=== PATIENT | male | born 1940 | race Caucasian/White ===

== ENCOUNTER → 2016-07-19 | Outpatient (CLI) | payer MEDICARE | END | disposition home or self-care (01) | LOC: GMAM 16:38 | PROVIDERS: ATTEND Family Medicine | DX: R35.0 Frequency of micturition (principal) ==

== ENCOUNTER → 2016-09-24 | Outpatient (CLI) | payer MEDICARE ==
--- NOTE | 2016-09-24 11:11 | RAD ---
EXAM DESCRIPTION: Barium Swallow CLINICAL HISTORY: 76 years Male, DYSPHAGIA COMPARISON: None. FINDINGS: Total exam time 0.7 minutes, 19.25 mGy, 11 fluoroscopic images including 3 cine clips. The exam is performed in the prone HERNANDEZ position only. No standing images were obtained. With this in mind, the esophagus is of normal course and caliber. Is no esophageal stricture or diverticulum. No hiatal hernia is seen. There are a few transverse folds which extend across the entire esophageal lumen suggesting the possibility of feline esophagus which is associated with gastroesophageal reflux. No gastroesophageal reflux was observed during this exam. There are multiple tertiary contractions with ineffective clearance of barium contrast by the primary peristaltic wave.. IMPRESSION: Esophageal dysmotility without definite esophageal wall thickening, stricture or esophageal obstruction. 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 If symptoms persist, EGD may be helpful for further evaluation. Electronically signed by: Gilberto Good MD 09/24/2016 11:10 AM CDT Workstation: [id number]
== END | disposition home or self-care (01) ==
LOC: RAD 09:42
PROVIDERS: ATTEND Otolaryngology Otolaryngology/Facial Plastic Surgery
DX: R49.0 Dysphonia (principal); R13.10 Dysphagia, unspecified

== ENCOUNTER → 2016-11-19 | Outpatient (CLI) | payer MEDICARE | LOC: BFHH 16:24 | PROVIDERS: ATTEND Family Medicine | DX: E11.22 Type 2 diabetes mellitus with diabetic chronic kidney disease (principal) ==

== ENCOUNTER → 2017-02-28 | Outpatient (CLI) | payer MEDICARE | END | disposition home or self-care (01) | LOC: GMAM 11:12 | PROVIDERS: ATTEND Family Medicine | DX: Z12.5 Encounter for screening for malignant neoplasm of prostate (principal) ==

== ENCOUNTER → 2017-06-07 | Outpatient (CLI) | payer MEDICARE | LOC: GMAM 11:52 | PROVIDERS: ATTEND Family Medicine | DX: R97.20 Elevated prostate specific antigen [PSA] (principal) ==

== ENCOUNTER 2017-07-02 10:44 | Emergency (ER) | payer MEDICARE ==
--- NOTE | 2017-07-02 12:14 | ED.PDOC ---
History of Present Illness - General Chief Complaint: Lower Extremity Injury Stated Complaint: Sore on the heel of his L foot Time Seen by Provider: 07/02/17 12:09 Source: family - History of Present Illness Initial Comments: Margarito Flores 77 y/o male diabetic brought by family with non healing sore on the heel of left foot for the last 10-14 days.No history of trauma but with previous dibateic foot ulcer healed in the past .Family stated blood sugar had been under control.No fever/chills or numbness left foot Occurred: other - 10-14 days Pain - Lower Extremity: moderate: Left Foot Method of Injury: unknown, other - NO INJURY Improving Factors: nothing Worsening Factors: nothing Allergies/Adverse Reactions: Allergies NO KNOWN ALLERGY Allergy (Verified 07/02/17 11:12) Home Medications: Ambulatory Orders Amoxicillin [Amoxil] 1,000 mg PO BID 10 Days #40 cap 07/02/17 Clopidogrel Bisulfate [Plavix] 75 mg PO QD 07/02/17 Donepezil Hydrochloride [Donepezil HCl] 23 mg PO BEDTIME 07/02/17 Insulin NPH (Human) (Isophane) [Humulin N Kwikpen] 20 unit SC BEDTIME 07/02/17 Insulin NPH (Human) (Isophane) [Humulin N Kwikpen] 30 unit SC AC 07/02/17 Lisinopril 10 mg PO DAILY 07/02/17 Melatonin 5 mg PO BEDTIME 07/02/17 Quetiapine Fumarate [Seroquel] 50 mg PO BEDTIME 07/02/17 Simvastatin 10 mg PO DAILY 07/02/17 Past Medical History (General) - Patient Medical History Hx Diabetes: Yes Hx Cancer: Yes - urinary bladder/colon Surgical History: other - hemicolectomy.enucleation right eye,urinary bladder CA scraping Family Medical History - Family History Father Hx Family Diabetes: Yes - multiple family members Hx Family Cancer: Yes - eye-dad;dvt Grandparents Family History: Unknown Physical Exam - Physical Exam General Appearance: Alert, Comfortable, No apparent distress Eyes, Ears, Nose, Throat: normal ENT inspection, other - artificial right eye Neck: non-tender, full range of motion, supple Cardiovascular/Respiratory: regular rate, rhythm, no M/R/G, normal peripheral pulses Gastrointestinal/Abdominal: non-tender, no organomegaly Back: no CVA tenderness, no vertebral tenderness Thigh/Hip: non-tender, no evidence of injury Leg: non-tender, no evidence of injury Knee: other - BKA amputation right LE Ankle: non-tender, no evidence of injury Foot: other - non healing wound with eschar formation heel left foot Neuro/Tendon: sensory deficit - sole of left foot Mental Status: alert, oriented x 3 Skin: normal color, cyanosis Progress - Progress Progress: 07/02/17 13:10 Vital Signs - 8 hr 07/02/17 10:55 Temperature 97.3 F L Pulse Rate [R 55 L Arm] Respiratory 20 Rate Blood Pressure 167/87 [R Arm] O2 Sat by Pulse 100 Oximetry - EKG/XRAY/CT XRAY: foot -right: degenerative changes Departure - Departure Clinical Impression: Diabetic foot ulcers Qualifiers: Diabetic foot ulcer location: heel Diabetes mellitus type: type 2 Laterality: left Non-pressure ulcer stage: unspecified non-pressure ulcer stage Qualified Code(s): E11.621 - Type 2 diabetes mellitus with foot ulcer; L97.429 - 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 Copy, Patient Portal Self Enrollment Instructions: DI for Diabetic Foot Ulcer, Diabetic Foot Ulcer Referrals: Margarito Iniguez MD [Primary Care Provider] - 1-2 Weeks Prescriptions: Amoxicillin [Amoxil] 1,000 mg PO BID 10 Days #40 cap Home Medications: Ambulatory Orders Amoxicillin [Amoxil] 1,000 mg PO BID 10 Days #40 cap 07/02/17 Clopidogrel Bisulfate [Plavix] 75 mg PO QD 07/02/17 Donepezil Hydrochloride [Donepezil HCl] 23 mg PO BEDTIME 07/02/17 Insulin NPH (Human) (Isophane) [Humulin N Kwikpen] 20 unit SC BEDTIME 07/02/17 Insulin NPH (Human) (Isophane) [Humulin N Kwikpen] 30 unit SC AC 07/02/17 Lisinopril 10 mg PO DAILY 07/02/17 Melatonin 5 mg PO BEDTIME 07/02/17 Quetiapine Fumarate [Seroquel] 50 mg PO BEDTIME 07/02/17 Simvastatin 10 mg PO DAILY 07/02/17 Additional Instructions: Follow up with primary Md 07/04/2017 for referral to ortho/surgeon/classroom assistant; Use only wheelchair ;No weight bearing left foot
--- NOTE | 2017-07-02 13:04 | RAD ---
EXAM: Foot,Left 3 Views CLINICAL INDICATION: 77-year-old male with pain. TECHNIQUE: Three views LEFT foot were obtained in AP, lateral and oblique projections COMPARISON: None. FINDINGS: There is no fracture or dislocation. The joint spaces are preserved. No soft tissue abnormalities are seen. Degenerative changes are identified with severe joint space irregularity, subchondral sclerosis and endplate irregularity, bulky osteophyte formation at the level of the first metatarsophalangeal joint space. Possibility of sequela of inflammatory arthropathy may be considered in the differential, sequela of prior trauma may be considered. Please correlate with patient site of pain. Bulky plantar heel spur. Degenerative changes of the midfoot articulation. IMPRESSION: 1. Severe degenerative change of the first metatarsophalangeal joint with differential as detailed above. 2. No acute radiographic abnormality. Electronically signed by: Letty Santamaria MD 07/02/2017 1:04 PM [facility]
[2017-07-02 15:02] VITALS: BP 165/80; TEMP 97.7; O2SAT 98
== END 2017-07-02 14:35 | disposition home or self-care (01) ==
LOC: ER 10:44
DX: E11.621 Type 2 diabetes mellitus with foot ulcer (principal); L97.429 Non-pressure chronic ulcer of left heel and midfoot with unspecified severity; Z79.4 Long term (current) use of insulin; Z79.02 Long term (current) use of antithrombotics/antiplatelets; Z79.899 Other long term (current) drug therapy; Z85.038 Personal history of other malignant neoplasm of large intestine; Z85.51 Personal history of malignant neoplasm of bladder

== ENCOUNTER → 2017-07-05 | Outpatient (CLI) | payer MEDICARE | LOC: GMAJS 15:16 | PROVIDERS: ATTEND Physician Assistant | DX: L97.409 Non-pressure chronic ulcer of unspecified heel and midfoot with unspecified severity (principal) ==

== ENCOUNTER → 2017-07-22 | Outpatient (CLI) | payer MEDICARE | LOC: BFHH 09:47 | PROVIDERS: ATTEND Family Medicine | DX: D64.9 Anemia, unspecified (principal) ==

== ENCOUNTER → 2017-07-28 | Outpatient (CLI) | payer MEDICARE | END | disposition home or self-care (01) | LOC: BFHH 12:46 | PROVIDERS: ATTEND Family Medicine | DX: E11.621 Type 2 diabetes mellitus with foot ulcer (principal); I12.9 Hypertensive chronic kidney disease with stage 1 through stage 4 chronic kidney disease, or unspecified chronic kidney disease; N18.9 Chronic kidney disease, unspecified; E87.1 Hypo-osmolality and hyponatremia ==

== ENCOUNTER → 2017-08-08 | Outpatient (CLI) | payer MEDICARE ==
--- NOTE | 2017-08-08 15:12 | US ---
Exam: Bilateral lower extremity arterial Doppler sonogram CLINICAL HISTORY: Symptoms TECHNIQUE: Doppler sonographic evaluation of the left lower extremity was performed. FINDINGS: Left Submitted sonographic images reveal calcified arteriosclerotic plaque in the left common femoral artery and superficial femoral artery with calcified plaque in the left popliteal artery. Calcified vessels below the knee are noted. The following peak systolic flow flow velocity measurements were obtained: Common femoral artery velocity equals 95 centimeters per second , biphasic. Superficial femoral artery velocity equals 78-92 centimeters per second , biphasic. Popliteal artery velocity equals 89 centimeters per second , biphasic. Peroneal artery velocity equals 72 centimeters per second , biphasic. Posterior tibial artery shows no flow on Doppler evaluation suggesting occlusion. Dorsalis pedis artery velocity equals 8 centimeters per second , monophasic. IMPRESSION: Occluded left posterior tibial artery with monophasic slow flow in the dorsalis pedis artery. Electronically signed by: Hira Fisher MD 08/08/2017 3:11 PM CDT
== END ==
LOC: US 09:22
PROVIDERS: ATTEND Family Medicine
DX: E86.1 Hypovolemia (principal); E87.8 Other disorders of electrolyte and fluid balance, not elsewhere classified; R33.8 Other retention of urine; E11.621 Type 2 diabetes mellitus with foot ulcer; L89.620 Pressure ulcer of left heel, unstageable; L89.150 Pressure ulcer of sacral region, unstageable; R68.89 Other general symptoms and signs; R29.818 Other symptoms and signs involving the nervous system; I77.1 Stricture of artery

== ENCOUNTER → 2017-08-11 | Outpatient (CLI) | payer MEDICARE | LOC: GMAM 10:26 | PROVIDERS: ATTEND Family Medicine | DX: L89.620 Pressure ulcer of left heel, unstageable (principal) ==

== ENCOUNTER → 2017-08-12 | Outpatient (CLI) | payer MEDICARE ==
--- NOTE | 2017-08-15 08:29 | MRI ---
MRI left foot without contrast INDICATION: Pressure ulcer nonhealing diabetic concern for osteomyelitis noncontrast due to renal insufficiency TECHNIQUE: Noncontrast MR imaging left foot moderately motion degraded FINDINGS: Prominent ankle and subtalar fluid. Diffuse soft tissue edema in the plantar aspect of the midfoot. Detail is limited by the motion. The soft tissues over the posterior heel are partially obscured on this exam. There is induration and probable vague soft tissue ulceration posteriorly. No definitive osteomyelitis/bone destruction. No drainable abscess. No evidence of foreign body IMPRESSION: Vague ulceration over the posterior heel No definite osteomyelitis Motion degraded exam Electronically signed by: Issa Warren MD 08/15/2017 8:27 AM CDT
== END ==
LOC: MRI 08:48
PROVIDERS: ATTEND Family Medicine
DX: L89.620 Pressure ulcer of left heel, unstageable (principal); S91.109A Unspecified open wound of unspecified toe(s) without damage to nail, initial encounter

== ENCOUNTER → 2017-08-18 | Outpatient (CLI) | payer MEDICARE ==
--- NOTE | 2017-08-20 09:21 | NM ---
EXAM DESCRIPTION: Bone Scan, 3Phase CLINICAL HISTORY: 77 years, Male, PRESSURE ULCER HEEL PVD WITH ULCERATION RADIOPHARMACEUTICAL: 26.7 mCi technetium 99m-MDP was administered intravenously. Flow images, immediate blood pool soft tissue images and delayed three hour bone scan images of the skeletal system were obtained with attention to the left foot. FINDINGS: Flow images show only one foot. The right lower extremity has been amputated below the knee. On the posterior images, there is increased flow to the left heel. This is consistent with inflammatory or infectious process. Soft tissue images show no significant increased activity on the anterior view but there is positive increased activity on the posterior view of the foot consistent with calcaneal abnormality and overlying soft tissue inflammation. Total body images of the skeletal system revealed positive activity in the kidneys as well as urinary bladder. Mild increased activity in the mid and lower L-spine, AC joints, sternoclavicular joints, and SI joints are consistent with degenerative changes. On camera view images of the left foot, lateral view shows intense increased activity in the region of the dorsal calcaneus. Patient has no overlying skin ulcer in this area. Although recent MRI was degraded by motion, no definite signal changes in the calcaneus were seen at that time (August 12, 2017). However on the present study, findings are consistent with dorsal calcaneal osteomyelitis. IMPRESSION: Increased flow, increased soft tissue activity and increased bony accumulation of radionuclide in the posterior left heel consistent with calcaneal osteomyelitis. Electronically signed by: Hira Fisher MD 08/20/2017 9:20 AM CDT
== END ==
LOC: NM 09:15
PROVIDERS: ATTEND Family Medicine
DX: L89.620 Pressure ulcer of left heel, unstageable (principal); I70.244 Atherosclerosis of native arteries of left leg with ulceration of heel and midfoot
CPT/HCPCS: 78315; A9503

== ENCOUNTER 2017-08-25 11:30 | Inpatient (IN) | payer MEDICARE ==
--- NOTE | 2017-08-25 12:00 | HP ---
SUPERVISING PHYSICIAN: Margarito Iniguez MD CHIEF COMPLAINT: Right lower leg pain. HISTORY OF PRESENT ILLNESS: This is a 77-year-old male patient who has been under the care of his primary care physician, Margarito Iniguez MD, for several months that have included a left heel ulcer that has had poor healing mostly due to his diabetes. He has been treated off and on with multiple testing done and he recently had a bone scan that showed increased soft tissue activity and increased bony accumulation of radionuclide in the posterior left heel that is consistent with calcaneal osteomyelitis. He had also been treated for a left heel ulcer with Bactrim that was mostly pansensitive to antibiotic with the exception of benzylpenicillin and cefoxitin. In clinic today, his ulcer had not improved and due to the bone scan report, Dr. Iniguez called me for a hospital admission. He had had a previous right lower leg amputation due to diabetes mellitus about 6 years ago. The patient was admitted to the hospital and his WBCs were 10.1 with hemoglobin 11.8, hematocrit 34.4. Sodium 123, potassium 4.4, chloride 90, carbon dioxide 26, BUN 18, creatinine 1.81. Glucose 250, serum osmolality 251.1, total serum protein 6.2. Blood cultures were done. Dr. Cunha was consulted. PAST MEDICAL HISTORY: 1. Atrial fibrillation. 2. Bladder cancer. 3. Chronic renal insufficiency, stage 3. 4. Dementia. 5. Hypertension. 6. Osteomyelitis. 7. Colon cancer status post colectomy in 2011 with no chemotherapy. 8. Diabetes mellitus, type 2. PAST SURGICAL HISTORY: 1. Right eye prosthesis. 2. Cholecystectomy. 3. Colon resection. 4. Left carotid endarterectomy. 5. Right leg amputation. 6. Right thumb repair. OUTPATIENT MEDICATIONS: Per the EMR and awaiting verification. ALLERGIES: DEMEROL, NAMENDA. SOCIAL HISTORY: He quit smoking many, many years ago. He is . He has two children. He lives in [place] with his daughter. REVIEW OF SYSTEMS: Negative except as per history of present illness. PHYSICAL EXAMINATION: VITAL SIGNS: Afebrile. Heart rate 56. Blood pressure 184/55. Respiratory rate 16. O2 saturation 99% on room air. GENERAL: This is a 77-year-old, male patient who is lying in his hospital bed. He is in no acute distress. HEENT: He has a right eye prosthesis. His left pupil is reactive to light. Oropharynx is clear. NECK: Supple without mass. RESPIRATORY: Essentially clear to auscultation bilaterally. CHEST: There is equal rise and fall of the chest with inspiration and expiration. CARDIOVASCULAR: Bradycardic rate and regular rhythm. GASTROINTESTINAL: Abdomen is soft, nondistended, nontender. Bowel sounds are positive. EXTREMITIES: His left lower leg has a very faint pedal pulse. There is a dressing to his left heel that is dry and intact. He has an amputation to his right lower leg. SKIN: Warm and dry. He does have a stage 1 to 2 decubitus ulcer on his coccyx. NEUROLOGIC: Awake, alert and and answers some simple yes/no questions appropriately. LABORATORY: Labs and films are as per history of present illness. ASSESSMENT: 1. Osteomyelitis of the left calcaneus. 2. Heel ulcer of the left heel, previously on Bactrim. 3. Decubitus ulcer on the coccyx times 2, stage 2 to stage 3. 4. Hyponatremia. 5. Diabetes mellitus, type 2, on insulin therapy. 6. Hypertension. 7. Chronic renal insufficiency, stage 3. 8. Dementia. 9. History of atrial fibrillation. PLAN: The patient has admitted to the hospital. We will do wound care on both his coccyx and his heel. Dr. Cunha has been consulted and he has seen the patient. I will restart his home medications. He has been started on vancomycin per pharmacy protocol and Levaquin. He will have accuchecks with sliding scale insulin. We will put him on fluid restrictions. I will check some lab in the morning including hemoglobin A1c. We will continue to monitor the patient closely and follow as needed. Dr. Iniguez is the collaborating physician and available for consultation. #[id number] [facility]
[2017-08-25] MEDS ORDERED: SODIUM CHLORIDE 0.9% (FLUSH) 10 ML SYG IV PRN (13:36)
[2017-08-25] MEDS ORDERED: VANCOMYCIN PER PHARMACY INJ SCH (14:00)
[2017-08-25] MEDS ORDERED: IV SET AND CAP CHANGE INJ INJ SCH (14:00)
[2017-08-25] MEDS: levoFLOXacin 750MG IV 750 MG in PREMIX BAG 1 BAG IVPB SCH (15:52)
[2017-08-25] MEDS ORDERED: VANCOMYCIN HCL INJ 500 MG VIAL ONE (17:06)
[2017-08-25] MEDS ORDERED: SODIUM CHLORIDE 0.9% 250ML 250 ML ONE (17:07)
[2017-08-25] MEDS ORDERED: VANCOMYCIN HCL INJ 1,000 MG VIAL IVPB ONE (17:07)
[2017-08-25] MEDS: VANCOMYCIN HCL INJ 1,000 MG, VANCOMYCIN HCL INJ 250 MG in SODIUM CHLORIDE 0.9% 250ML 25... IVPB SCH (17:26)
[2017-08-25] MEDS: CLOPIDOGREL 75 MG TAB PO SCH (18:37)
[2017-08-25] MEDS ORDERED: QUEtiapine FUMARATE 25 MG TAB ONE (19:55)
[2017-08-25] MEDS ORDERED: MELATONIN 3 MG TAB ONE (19:56)
[2017-08-25] MEDS: NON-FORMULARY MEDICATION 1 EA MIS (Donepezil Hydrochloride [Donepezil Hcl] 23 MG) PO SCH (20:35)
[2017-08-25] MEDS: MELATONIN 3 MG TAB PO SCH (20:36)
[2017-08-25] MEDS: SODIUM CHLORIDE 0.9% (FLUSH) 10 ML SYG IV SCH (20:38)
[2017-08-25] MEDS ORDERED: NON-FORMULARY MEDICATION 1 EA MIS (Quetiapine Fumarate [Seroquel] 50 MG) PO SCH (21:00)
[2017-08-25] MEDS ORDERED: NON-FORMULARY MEDICATION 1 EA MIS (Melatonin [Melatonin] 5 MG) PO SCH (21:00)
[2017-08-26] MEDS: SODIUM CHLORIDE 0.9% (FLUSH) 10 ML SYG IV SCH ×2 (08:48→21:16)
[2017-08-26] MEDS: CLOPIDOGREL 75 MG TAB PO SCH (08:48)
[2017-08-26] MEDS: SIMVASTATIN 10 MG TAB PO SCH (08:49)
[2017-08-26] MEDS: LISINOPRIL 10 MG TAB PO SCH (08:49)
--- NOTE | 2017-08-26 13:10 | CONS ---
DATE OF CONSULTATION: 08/24/17 HISTORY OF PRESENT ILLNESS: The patient is a 77-year-old patient of Dr. Pamela costello who has had an ulcer on his left heel with diabetes. He has had testing recently including a bone scan that is suspicious for osteomyelitis. He has had Bactrim and the bacteria he had grown was certainly sensitive to Bactrim and many others. He was admitted and had blood culture and started on Levaquin. I have been consulted. PAST MEDICAL HISTORY: 1. Atrial fibrillation. 2. Carcinoma of the bladder. 3. Renal insufficiency. 4. Dementia. 5. Hypertension. 6. Osteomyelitis. 7. Colon cancer status post colectomy. 8. Diabetes. PAST SURGICAL HISTORY: 1. Cholecystectomy. 2. Colectomy. 3. Right eye prosthesis. 4. Left carotid endarterectomy. 5. Right leg [id number] amputation. 6. Right thumb surgery. CURRENT MEDICATIONS: His medications a requite numerous and on the medical record. ALLERGIES: DEMEROL, NAMENDA. SOCIAL HISTORY: The patient quit smoking many years ago. He is . He lives in [place] with his daughter. REVIEW OF SYSTEMS: Unremarkable and essentially the patient is unable to give this. PHYSICAL EXAMINATION: VITAL SIGNS: The patient is currently afebrile, normotensive. HEENT: Sclerae nonicteric. Mucous membranes moist. NECK: Without mass. CHEST: Equal breath sounds bilaterally. ABDOMEN: Soft and benign. EXTREMITIES: The left lower extremity is warm. There is approximately 2x2.5 cm eschar with no significant fluctuance or crepitus below it. There is no surrounding erythema, no drainage. ASSESSMENT: 1. Rule out osteomyelitis of the left calcaneus with a pressure ulcer on the left. 2. Decubitus ulcer of his coccyx being treated with routine care. PLAN: We will follow the patient with you and consider excision of the eschar to obtain a repeat culture. #[id number] [facility]
[2017-08-26] MEDS: levoFLOXacin 750MG IV 750 MG in PREMIX BAG 1 BAG IVPB SCH (15:25)
[2017-08-26] MEDS ORDERED: VANCOMYCIN HCL INJ 1,000 MG VIAL IVPB ONE (17:12)
[2017-08-26] MEDS ORDERED: VANCOMYCIN HCL INJ 500 MG VIAL ONE (17:12)
[2017-08-26] MEDS ORDERED: SODIUM CHLORIDE 0.9% 250ML 250 ML ONE (17:12)
[2017-08-26] MEDS: VANCOMYCIN HCL INJ 1,000 MG, VANCOMYCIN HCL INJ 250 MG in SODIUM CHLORIDE 0.9% 250ML 25... IVPB SCH (17:32)
--- NOTE | 2017-08-26 19:35 | PN ---
SUPERVISING PHYSICIAN: Margarito Iniguez MD DATE: 08/26/17 SUBJECTIVE: The patient is lying in bed. He is asleep. Earlier today, he had a debridement of the heel wound by Dr. Cunha. The patient awakens easily. He has no complaints of nausea, vomiting, diarrhea or constipation, chest pain or shortness of breath. He and his are concerned that the wound was oozing some and he was reassured that we would put pressure on the wound and that it would stop bleeding after a bit. OBJECTIVE: VITAL SIGNS: Afebrile. Heart rate 58. Blood pressure 137/76. It has gotten as high as 184/65. Respiratory rate 20. O2 saturation 93% on room air. RESPIRATORY: Essentially clear to auscultation bilaterally. CARDIAC: Regular rate and rhythm. EXTREMITIES: He has a right [id number]-[id number] amputation and the left lower extremity has a dressing to the heel that has some serosanguineous drainage on it, but it is only a small amount. NEUROLOGIC: Awake, alert. LABORATORY: Sodium is improved to 127 with potassium 4.6, chloride 93, carbon dioxide 26. BUN 17, creatinine slightly improved to 1.6. Hemoglobin A1c 6.2. Serum total protein 5.6. WBCs 7.5, hemoglobin 10.4, hematocrit 30.5. Preliminary show no growth after 24 hours. Wound culture is pending. All other labs and films have been reviewed via the EMR. ASSESSMENT: 1. Osteomyelitis of the left calcaneus. 2. Heel ulcer of the left heel, previously on Bactrim, now on vancomycin and Levaquin. 3. Decubitus ulcer on the coccyx times 2, stage 2 to stage 3. 4. Hyponatremia, improved. 5. Diabetes mellitus, type 2, on insulin therapy. 6. Hypertension. 7. Chronic renal insufficiency, stage 3. 8. Dementia. 9. History of atrial fibrillation. PLAN: We will continue present supportive care. His blood pressure has been slightly elevated today and we will watch that overnight. For now, we will continue with medications as ordered. ESR and CRP were within normal limits yesterday. At this point, there is a question of how long we should do IV antibiotic therapy. I am not sure if Dr. De Anda should be consulted, but we can discuss with Dr. Iniguez, his primary care physician, as well as Dr. Cunha. He is on insulin 70/30 and his has some sliding scale that she doses his insulin and I am not quite sure what that is, but we will hold off on restarting the 70/30 for now as his blood sugars are fairly well controlled with the sliding scale with the NovoLog insulin. We will continue to monitor the patient closely and follow as needed. Dr. Iniguez is the collaborating physician and available for consultation. #[id number] [facility]
[2017-08-26] MEDS ORDERED: QUEtiapine FUMARATE 25 MG TAB PO SCH (21:00)
[2017-08-26] MEDS: NON-FORMULARY MEDICATION 1 EA MIS (Donepezil Hydrochloride [Donepezil Hcl] 23 MG) PO SCH (21:14)
[2017-08-26] MEDS: MELATONIN 3 MG TAB PO SCH (21:15)
[2017-08-27] MEDS ORDERED: CLOPIDOGREL 75 MG TAB PO SCH (09:00)
[2017-08-27] MEDS: SIMVASTATIN 10 MG TAB PO SCH (09:21)
[2017-08-27] MEDS: LISINOPRIL 10 MG TAB PO SCH (09:21)
[2017-08-27] MEDS: SODIUM CHLORIDE 0.9% (FLUSH) 10 ML SYG IV SCH (09:22)
[2017-08-27 10:39] VITALS: O2SAT 98
[2017-08-27 12:03] VITALS: BP 170/69; TEMP 97.3
--- NOTE | 2017-08-29 11:53 | DS ---
SUPERVISING PHYSICIAN: Margarito Iniguez MD DISCHARGE DIAGNOSIS: 1. Osteomyelitis of the left calcaneus, showing good response with antibiotics having transitioned from IV Levaquin to p.o. Levaquin. 2. Heel ulcer of the left heel, previously on Bactrim, completed on vancomycin and Levaquin with wound debridement by Dr. Cunha showing good granulation healing of the wound bed. 3. Decubitus ulcer on the coccyx times 2, stage 2 to stage 3. 4. Hyponatremia, improving. 5. Diabetes mellitus, type 2, on insulin therapy. 6. Hypertension. 7. Chronic renal insufficiency, stage 3. 8. Dementia. 9. History of atrial fibrillation. REASON FOR HOSPITALIZATION: Mr. Flores is a 77-year-old male patient who has been under the care of his primary care physician, Margarito Iniguez MD, for several months that have included a left heel ulcer that has had poor healing mostly due to his diabetes. He has been treated off and on with multiple testing done and he recently had a bone scan as he was unable to tolerate MRI that showed increased soft tissue activity and increased bony accumulation of radionuclide in the posterior left heel that is consistent with calcaneal osteomyelitis. He had also been treated for a left heel ulcer with Bactrim that was mostly pansensitive to antibiotic with the exception of benzylpenicillin and cefoxitin. In clinic on the date of admission, his ulcer had not improved and due to the bone scan report, Dr. Iniguez called for a hospital admission and initiation of IV antibiotics. He had had a previous right lower leg amputation due to diabetes mellitus about 6 years previous. The patient was admitted to the hospital for treatment of osteomyelitis with a consultation by Dr. Cunha. The patient was in stable condition at time of admission. LABORATORY: Initial white count was 10.1 with hemoglobin 11.8, hematocrit 34.4. And therefore, hemoglobin was 10.4, hematocrit 30.5 with white count 7.5. Differential was without a left shift. Chemistries showed a persistent and chronic hyponatremia with initial sodium 123 on admission. At discharge, sodium was 127., Potassium 4.6. Creatinine was initially 1.81 and at discharge was 1.6. Hemoglobin A1c 6.2. Calcium 8.5, magnesium 1.9. Liver functions all within normal limits. C-reactive protein was within normal limits at 0.5. MICROBIOLOGY: Wound culture showed no growth. MRSA surveillance culture preliminary continued to show positive cocci with pending final workup. Three sets of blood culture that were negative at 3 days. RADIOLOGY: No additional radiographic studies while in the hospital. HOSPITAL COURSE: Mr. Florse was admitted for osteomyelitis of the heel as noted above. He was started on vancomycin and Levaquin. He was on sliding scale and showed good control of his blood sugars. He was stable clinically. He had a debridement by Dr. Cunha of the area of concern. It was felt that he was showing good clinical response to treatment and was able to be discharged to continue treatment with oral medications. PLAN: Mr. Flores was discharged on 08/27/17 after I spoke with Dr. Iniguez regarding plan of care which was to include continued antibiotic treatment with Levaquin and additional doxycycline given that we do not he has positive MRSA surveillance culture as of yet at discharge. He was to have continued home health as previous to admission for wound care. He was to have no weight- bearing on the left foot until cleared by Dr. Iniguez and to keep the leg elevated as possible. He was told to return to the hospital for any concerning symptoms. Diet was diabetic diet at discharge. Activity was as instructed. MEDICATIONS AT DISCHARGE: 1. Doxycycline 100 mg twice daily, #14. 2. Levaquin 750 mg every other day for compensation for his renal function, #14 tablets for 2 weeks for anticipated duration of at least 6 weeks, but no less than 4, depending on how he presents clinically. All other medications were resumed as previous to hospitalization. His condition at discharge was stable and improved. #[id number] [facility]
== END 2017-08-27 15:04 | disposition home health service (06) | DRG 637 ==
LOC: MS 11:30
PROVIDERS: ADMIT Nurse Practitioner Acute Care; ATTEND Nurse Practitioner Family
DX: E11.69 Type 2 diabetes mellitus with other specified complication (principal); L89.153 Pressure ulcer of sacral region, stage 3; L97.429 Non-pressure chronic ulcer of left heel and midfoot with unspecified severity; M86.8X7 Other osteomyelitis, ankle and foot; E87.1 Hypo-osmolality and hyponatremia; E11.621 Type 2 diabetes mellitus with foot ulcer; I48.91 Unspecified atrial fibrillation; N18.3 Chronic kidney disease, stage 3 (moderate); F03.90 Unspecified dementia, unspecified severity, without behavioral disturbance, psychotic disturbance, mood disturbance, and anxiety; I12.9 Hypertensive chronic kidney disease with stage 1 through stage 4 chronic kidney disease, or unspecified chronic kidney disease; E11.22 Type 2 diabetes mellitus with diabetic chronic kidney disease; Z85.038 Personal history of other malignant neoplasm of large intestine; Z90.49 Acquired absence of other specified parts of digestive tract; Z89.611 Acquired absence of right leg above knee; Z88.5 Allergy status to narcotic agent; Z88.8 Allergy status to other drugs, medicaments and biological substances; Z87.891 Personal history of nicotine dependence; Z79.4 Long term (current) use of insulin; Z85.51 Personal history of malignant neoplasm of bladder

== ENCOUNTER → 2017-08-30 | Outpatient (CLI) | payer MEDICARE | LOC: BFHH 15:03 | PROVIDERS: ATTEND Family Medicine | DX: L89.620 Pressure ulcer of left heel, unstageable (principal); E11.51 Type 2 diabetes mellitus with diabetic peripheral angiopathy without gangrene ==